=== PATIENT | female | born 1970 | race African-American/Black ===

== ENCOUNTER 2022-11-06 16:27 | Emergency (ER) | payer BC, SELFPAY ==
[2022-11-06 16:29] VITALS: BP 140/91; PULSE 67; RESP 18; TEMP 36.4; O2SAT 98; BMI 40.0
--- NOTE | 2022-11-06 16:40 | EKG12_ITS ---
Test Reason : Blood Pressure : / mmHG Vent. Rate : 064 BPM Atrial Rate : 064 BPM P-R Int : 156 ms QRS Dur : 072 ms QT Int : 440 ms P-R-T Axes : 051 010 039 degrees QTc Int : 453 ms Normal sinus rhythm Low voltage QRS Borderline ECG Confirmed by KENNEDY FREEMAN, ANUSHA ([id number]), industrial editor MORRIS MICHELLE ([id number]) on 11/13/2022 1:18:51 PM Referred By: Confirmed By:ANUSHA BENAVIDES MD
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
[2022-11-06] MEDS: MethylPREDNISolone 125 MG/2 ML Vial 60 MG IV (16:46)
[2022-11-06] MEDS: DiphenhydrAMINE 50 MG/ML Syringe IV (16:47)
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
[2022-11-06] MEDS: 0.9% Normal Saline (1000mL) 1,000 ML 999 ML IV (16:52)
[2022-11-06] MEDS: Ondansetron 4 MG/2 ML Vial IV (16:53)
[2022-11-06] MEDS: fentaNYL 100 MCG/2 ML Ampul 25 MCG IV ×2 (16:54→17:57)
[2022-11-06 17:05] LABS: Absolute Lymphocyte Count 1.89 X10^3/uL (0.83-4.51); Absolute Neutrophil Count 2.9 X10^3/uL (2.0-7.7); Basophil# 0.06 X10^3/uL; Basophil% 1.1 % (0-1); Eosinophil# 0.17 X10^3/uL; Eosinophils% 3.1 % (0-5); Hemoglobin 12.5 g/dL (12.0-15.0); Lymphocyte # 1.89 X10^3/ul (0.83-4.51); Lymphocyte % 34.8 % (19-41); Mean Corp Hgb Conc 32.1 g/dL (32-36); Mean Corpuscular Hgb 29.3 pg (27.0-32.0); Mean Corpuscular Volume 91.5 fL (81-99); Mean Platelet Vol. 10.3 fl (6.2-12.0); Monocyte# 0.41 X10^3/uL; Monocyte% 7.6 % (0-10); NRBC Flagged by Analyzer 0 % (0-5); Neutrophil % 53.4 % (47-70); Platelet Count 226 K/mm3 (150-450); RBC Distribution Width CV 13.1 % (11.6-14.6); RBC Distribution Width SD 43.7 fl (35.1-43.9); Red Blood Count 4.26 M/mm3 (4.2-5.4); White Blood Count 5.4 K/mm3 (4.4-11.0)
[2022-11-06 17:15] LABS: Alcohol, Blood (Medical)-Serum < 3.0 mg/dL
[2022-11-06 17:21] LABS: AST(SGOT) 27 U/L (15-37); Alanine Aminotransfer ALT/SGPT 30 U/L (13-56); Albumin, Serum 3.3 g/dL (3.2-5.0); Alkaline Phosphatase 81 U/L (45-117); Anion Gap 4 (5-15); BUN 12 mg/dL (7-18); BUN/Creat Ratio 17.9 RATIO (10-20); Bilirubin, Direct 0.08 mg/dL (0.00-0.30); Calcium,Total 8.1 mg/dL (8.5-10.1); Chloride 112 mmol/L (98-107); Creatinine, Serum 0.67 mg/dL (0.55-1.02); EST Glomerular Filtration Rate 98 mL/min (>60); Est Glom Filt Rate - Afr Amer 118 mL/min (>60); Estimated Creatinine Clearance 87.38 ml/min; Glucose 98 mg/dL (74-106); Potassium 3.4 mmol/L (3.5-5.1); Protein, Total 6.3 g/dL (6.4-8.2); Sodium Level 142 mmol/L (136-145)
--- NOTE | 2022-11-06 17:30 | RAD_ITS ---
INDICATION: pain EXAMINATION/TECHNIQUE: X-RAY - RIGHT XR Hand 3 VIEWS COMPARISON: FINDINGS: SOFT TISSUES: No soft tissue swelling or gas. No radiopaque foreign body. BONES/JOINTS: There is a fracture line noted through the distal end of the radius.. No sclerotic or destructive changes observed. RAD/Hand Min 3 Views IMPRESSION: Distal radial fracture. Electronically Signed: Morris Lay DO at 18:10 EDT ,
--- NOTE | 2022-11-06 17:30 | RAD_ITS ---
INDICATION: pain EXAMINATION/TECHNIQUE: X-RAY - RIGHT XR Wrist 3 VIEWS COMPARISON: FINDINGS: SOFT TISSUES: No soft tissue swelling or gas. No radiopaque foreign body. BONES/JOINTS: There is a fracture through the distal end of the radius. Preservation of the joint space.. No sclerotic or destructive changes observed. RAD/Wrist min 3 Views IMPRESSION: Distal radial fracture. Electronically Signed: Morris Lay DO at 18:12 EDT ,
--- NOTE | 2022-11-06 17:30 | RAD_ITS ---
INDICATION: pain EXAMINATION/TECHNIQUE: X-RAY - RIGHT XR Forearm 2 Views COMPARISON: FINDINGS: SOFT TISSUES: No soft tissue swelling or gas. No radiopaque foreign body. BONES/JOINTS: There is a fracture of the distal end of the radius. Normal alignment. Preservation of the joint space.. No sclerotic or destructive changes observed. RAD/Forearm 2 Views IMPRESSION: Distal radial fracture. Electronically Signed: Morris Lay DO at 18:45 EDT ,
[2022-11-06 18:16] VITALS: BP 139/88; PULSE 72; RESP 18; O2SAT 98
[2022-11-06 18:45] LABS: Bacteria 0 SEEN /hpf (None Seen); Mucous, Urine 0 SEEN /hpf (<or=2+); Red Blood Cells-Urine 0 SEEN /hpf (0-5); Squamous Epithelial Cells - UA 0 SEEN /hpf (5-10); White Blood Cells 0 SEEN /hpf (0-5)
[2022-11-06 18:49] LABS: Color, Urine Yellow (Yellow); Glucose, Dipstick Normal (Normal); Ketone-Dipstick Negative (Negative); Leukocyte Esterase-Dipstick Negative /ul (Negative); Nitrite-Dipstick Negative (Negative); Occult Blood-Urine Negative /ul (Negative); Protein-Dipstick Negative (Negative); Specific Gravity, Urine 1.005 (1.002-1.030); Urine Bilirubin Dipstick Negative (Negative); Urine Clarity Sl. Cloudy (Clear); Urine Urobilinogen Normal (Normal)
[2022-11-06] MEDS: Morphine 4 MG/ML Syringe IV (19:33)
[2022-11-06 19:37] VITALS: BP 134/74; PULSE 82; RESP 16; O2SAT 100
[2022-11-06 20:22] VITALS: BP 133/84; PULSE 72; RESP 17; O2SAT 100
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
== END 2022-11-06 20:55 | disposition short-term general hospital (02) ==
PROVIDERS: Emergency Provider Student in an Organized Health Care Education/Training Program; Visit Provider Student in an Organized Health Care Education/Training Program
DX: S30.1XXA Contusion of abdominal wall, initial encounter (principal); S52.501A Unspecified fracture of the lower end of right radius, initial encounter for closed fracture; V49.40XA Driver injured in collision with unspecified motor vehicles in traffic accident, initial encounter; Y92.410 Unspecified street and highway as the place of occurrence of the external cause; Z85.3 Personal history of malignant neoplasm of breast
CPT/HCPCS: 70450; 71260; 72125; 73090; 73110; 73130; 74177; 80048; 80076; 81001; 82077; 85025; 93005; 96361; 96374; 96375; 96376; 99285; J7030; Q9967; A4216; J2405